=== PATIENT | male | born 1960 | race Caucasian/White ===

== ENCOUNTER 2022-04-04 01:06 | Day surgery (SDC) | payer OTHER, SELFPAY ==
--- NOTE | 2022-04-01 13:45 | SUR.PREOP ---
Report to the Outpatient Waiting Room, entrance under the green pavilion located off [facility], at time 0700 on date 04/04/22. OR Time: 0900. - You and your visitor will be asked a series of questions to screen for COVID 19 for your protection. - Only one visitor is allowed at this time. - The patient visitor is requested to leave or wait in car when not with patient. - A mask is required within the hospital. Patients may have clear liquids (water, carbonated beverages, clear teas, apple juice) until 3 hours prior to surgery with a maximum of 20 ounces. - NO CLEAR LIQUIDS AFTER 0600 - No food from midnight until time of surgery - Infants may have breast milk until 4 hours before surgery, infant formula 6 hours prior to surgery. - Children will be allowed to drink immediately following surgery. If applicable, please bring a bottle or sippy cup to assist with drinking. Juice, water, soda, and popsicles are readily available. For infants on formula, please bring formula the day of surgery. Pacifiers are allowed. Take the following medications with a SIP of water the morning of surgery: LEVOTHYROXINE Medications to discontinue per physician MULTIVITAMIN Date to take last dose 04/02/22 Please no make-up, nail nauruan, hairspray, perfume, deodorant, or body powder the day of surgery. No jewelry (including any body piercings) or valuables the day of surgery, leave them at home. Please take a shower or bath the night before, or the morning of, surgery with an antibacterial soap. Wear comfortable, loose fitting clothing. Children are encouraged to wear pajamas. - Jewelry must be removed prior to entering the operating room. Rings and piercings that are not removed may be cut off. - The hospital will not accept responsibility for valuables. - Please leave all valuables, including medications, at home the day of surgery. If you are going home after surgery, a licensed dump truck driver off highway must drive you home. - NO public transportation without another adult. - We recommend that an adult stay with you for 24 hours following discharge. - We also recommend that you do not drive, make important decision, drink alcoholic beverages, or take any drugs that were not prescribed by your health care provider for at least 24 hours after your discharge time. For Pediatric surgeries, we recommend two adults accompany the child home (only one inside the building at this time). Follow any additional instructions given to you from your surgeon. If you or anyone in your household have experienced Covid symptoms in the past week, please notify your surgeon or the nurse liaison at the phone number below for possible testing. Telephone instructions given to TESSA POPE and asked if any additional questions and then verbalized understanding. Patient advised to call surgeon office or pre surgery nurse liaison [phone] if any additional questions.
[2022-04-01 13:58] VITALS: BMI 25.8
--- NOTE | 2022-04-03 10:46 | P.PNAN_ITS ---
Anes - Initial Pre Proc Eval Procedure: Operation Date: 04/04/22 09:00 Proposed Procedures p Fifth Metatarsal Head Resection Right Foot - Kurtis Muller JR, MD Date/Time: 04/03/22 10:46 Surgeon: Kurtis Muller JR, MD Pre Op Diagnosis: Tailors Bunion Deformity Right Foot Patient Data Age: 61 Gender: M Height: 1.78 m Weight: 81.7 kg Allergies Allergy/AdvReac Type Severity Reaction Status Date / Time No Known Allergies Allergy Mild Verified 04/04/22 07:38 Home Medications Medication Instructions Recorded Confirmed Type Adult One Daily Multivitamin 1 tab-cap PO DAILY 04/01/22 04/01/22 History atorvastatin 20 mg tablet 1 tablet PO HS 04/01/22 04/01/22 History levothyroxine 75 mcg tablet 75 tablet PO DAILY 04/01/22 04/01/22 History Patient hx anesthesia problems: none Family hx anesthesia problems: none Results Review: All pre-operative results and documents have been reviewed as part of the pre- operative evaluation. [facility] Past Medical History Medical History Hyperlipidemia Hypothyroidism Smoker Family History Family History (Updated 05/25/14 @ 07:13 by DOCTOR UNKNOWN) Father Hypertension Social History Social History Smoking packs per day: 1 Smoking cigarettes per day: 20.0 Years smoked: 32 Smoking pack-years: 32.00 Smoking status: Current every day smoker Tobacco type: cigarettes Spiritual care concerns: No Anes - Eval Final PreProcedure Day of Procedure 04/03/22 10:46 Patient weight: normal Heart: regular rate and rhythm Lungs: clear to auscultation and normal air movement Airway: Mallampati scale class II Neurological: alert and oriented Last oral intake: >/= 8 hours ASA classification: II Emergent: no Anesthetic plan: proceed Anesthesia type and monitoring: general GIVS Results Review: All pre-operative results and documents have been reviewed as part of the pre- operative evaluation. Informed Consent: The patient's anesthetic plan and its attendant risks and benefits were discussed with the patient/family/POA. Questions were solicited and answers provided to the satisfaction of the patient/family/POA.
--- NOTE | ~2022-04-04 | XR_ITS ---
EXAMINATION: XR surgery orthopedic DATE: 04/04/2022 10:15 INDICATION: Right fifth metatarsal head resection TECHNIQUE: Single dorsal plantar fluoroscopic image of the right forefoot was obtained during procedu re performed by Dr. Muller. Radiologist was not present for the imaging or procedure. The amount of fluoroscopy time used during this procedure was 0.1 minutes. COMPARISON: None. FINDINGS: Expected small amount of postoperative gas at the site of the resected head of the fifth metatarsal. Remaining bones are in normal alignment with no fractures. 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 IMPRESSION: 1. Expected appearance post resection of the head of the right fifth metatarsal. See procedure note f or further detail. Reviewed, dictated and finalized at location A. IMPRESSION: 1. Expected appearance post resection of the head of the right fifth metatarsal . See procedure note for further detail.
--- NOTE | 2022-04-04 07:13 | WPDHPUPDATE1 ---
History and Physical Update Update Date/Time: 04/04/22 07:13 History and Physical has been reviewed, including an updated exam of the patient. There are NO changes in the patient's condition. Risks, benefits, and alternatives have been discussed and questions answered. Patient agrees to proceed with procedure.
[2022-04-04 07:43] VITALS: BP 106/80; PULSE 64; RESP 14; TEMP 36.3; O2SAT 98
[2022-04-04] MEDS: LACTATED RINGERS 1,000 ML 30 ML IV CONT ×2 (07:54→10:20)
--- NOTE | 2022-04-04 10:14 | W.PM.PROC2 ---
Procedure Note - Detailed Date of Procedure 04/04/22 Pre-op Diagnosis Tailors Bunion Deformity Right Foot Post-op Diagnosis Same Procedure Performed Fifth metatarsal head resection right foot Surgeon Kurtis Muller JR, DPUnruly Anesthesia MAC and Local Indications Painful lateral right forefoot Description of Procedure Under mild sedation, the patient was brought in to the operating room, placed on the operating table in the supine position. A pneumatic ankle tourniquet was placed about the patient's leg. Following monitored anesthesia care, local anesthesia was obtained about the patients ankle utilizing 20 mL of a 1:1 mixture of 2% Lidocaine plain and 0.5% Marcaine plain. The foot was then scrubbed, prepped, and draped in the usual aseptic manner. An Esmarch bandage was then used to exsanguinate the patient's foot and the pneumatic ankle tourniquet was then inflated. Attention was directed to the dorsal lateral aspect of the fifth metatarsal head where a 2 cm incision was made just lateral to the extensor digitorum longus tendon to the fifth digit to the shaft of the fifth metatarsal. The incision was continued deep down through the subcutaneous tissues using sharp and blunt dissection. All bleeders were cauterized as necessary.A full-length periosteal incision was made overlying the fifth metatarsal distally. A McGlamry Elevator was used to free the plantar structures to the fifth metatarsal head. Next, a sagittal bone saw was used to resect the head of the fifth metatarsal proximal at the neck of the 5th metatarsal. The fifth metatarsal was removed from the operative site and placed on the back table and discarded. No abnormalities to the head of the fifth metatarsal. Fluoroscopy was used to make sure that the resected distal fifth metatarsal was adequate. The edges were smoothed out with a bone rasp. Next, the periosteum and capsular structures overlying the 5th metatarsophalangeal joints were reapproximated with 3-0 Vicryl. Next, subcutaneous structures were reapproximated and coapted utilizing 4-0 Vicryl. Next, the skin was reapproximated and coapted utilizing 4-0 Monocryl in running subcuticular suture fashion technique. Upon completion of the procedure, the incision was dressed with Adaptic, 4 x 4's, Kerlix, and Coban. The pneumatic ankle tourniquet was then deflated and a prompt hyperemic response noted to all digits of the foot. A CAM walker boot was then applied. The patient did very well with the procedure and the anesthesia. The patient was transferred to the recovery room with vital signs stable and vascular status intact to all toes of the affected foot. Following a period of postoperative monitoring, the patient will be discharged home on the following written and oral postoperative instructions: 1. Keep the dressing clean, dry, and intact. Use a cast protector bag with showers. 2. The patient should use a CAM boot for ambulation postoperatively. 3. The patient should be on bedrest with bathroom privileges and elevate the affected foot when at rest. 4. The patient to contact Dr. Muller for all postop care and if any problems arise. 5. Prescriptions were written for Percocet 5/325 dispensed 40 to be taken 1 p.o. q.4 to 6 hours as needed for severe pain. 6. Take one Aspirin 325mg every 24hours for two weeks post operatively. Estimated Blood Loss 1 Complications No immediate complications Condition Stable Disposition Same day
[2022-04-04 10:20] VITALS: BP 98/69; PULSE 73; RESP 16; O2SAT 94
[2022-04-04 10:40] VITALS: BP 109/77; PULSE 51; RESP 16
[2022-04-04 11:10] VITALS: BP 121/84; PULSE 54; RESP 16
== END 2022-04-04 11:20 | disposition home or self-care (01) ==
PROVIDERS: PCP Family Medicine Sports Medicine; Visit Provider Podiatrist Foot & Ankle Surgery
PROC: (CPT 28750; principal; 2022-04-04 09:00)
DX: M21.621 Bunionette of right foot (principal); E78.5 Hyperlipidemia, unspecified; E03.9 Hypothyroidism, unspecified; F17.210 Nicotine dependence, cigarettes, uncomplicated
CPT/HCPCS: 28110; 99199; J2250; J2704; J3010; J7120